=== PATIENT | female | born 1990 ===

== ENCOUNTER 2018-12-02 06:46 | Inpatient (IN) | payer SELFPAY ==
[2018-12-02] VITALS (27 sets, daily range): BP systolic 87–127; BP diastolic 51–81; PULSE 57–78; TEMP 97.5–98.2
[~2018-12-02] VITALS: Ht 182.9 cm; Wt 100.0 kg
[~2018-12-02 06:46] MED LIST: IBU600 MG PO; PRENATAL1 TA7 PO
--- NOTE | 2018-12-02 06:50 | NUR ---
0650- Pt arrives on unit via wheelchair from ED with complaints of UCs. Pt ambulates into bathroom independently to change into gown. 0654- Pt into bed, EFM and TOCO on and tracing. SVE /-2, intact. Assessment completed. Ice water given to PO hydrate. Plan of care explained. Pt denies questions at this time. Call light within reach.
[2018-12-02] MEDS ORDERED: VALTREX 50500 MG/TAB PO (07:04)
[2018-12-02 09:03] LABS: BASO % 0.4 % (0.0-2.0); EOS % 0.1 % (0-4.0); GRAN # 7.1 (1.4-6.5); GRAN % 71.1 % (42.2-75.2); HEMATOCRIT 39.9 % (37.0-47.0); HEMOGLOBIN 13.5 g/dl (12.5-16.0); LYMPH # 2.2 (1.2-3.4); LYMPH % 22.1 % (20.0-51.0); MEAN CELL VOLUME 95 fl (80.0-100.0); MEAN CORPUSCULAR HEMOGLOBIN 32 pg (27.0-31.0); MEAN CORPUSCULAR HGB CONC 34 g/dl (33.0-37.0); MEAN PLATELET VOLUME 11.2 fl (7.4-10.4); MONO # 0.6 (0.1-0.6); MONO % 5.9 % (1.7-9.3); PLATELET COUNT 213 K/mm3 (130-400); RED BLOOD COUNT 4.21 M/mm3 (4.10-5.30); REDCELL DISTRIBUTION WIDTH-CV 13.2 % (11.5-14.5)
--- NOTE | 2018-12-02 09:15 | NUR ---
0905- JOANNE Pederson at bedside for epidural placement. Pt repositioned to sitting on side of bed. 0908- O2 sat monitor on and tracing. 0916- Sat monitor off. 0918- Pt assisted to Semi-fowlers with WL. Pt tolerated well.
--- NOTE | 2018-12-02 11:00 | NUR ---
1100- Pt report given to JAYRO Sommers, she assumes care of Pt at this time.
--- NOTE | 2018-12-02 12:21 | NUR ---
1110 INTRODUCED TO PT AND IS COMPLAINING OF INCREASED PRESSUE. SVE SHOWS PT NOW COMPLETE. 1115 DR BARRY NOTIFIED VIA CELL PHONE OF PT PROGRESS, WILL COME FOR DELIVERY.
--- NOTE | 2018-12-02 12:23 | NUR ---
1125 QUIROS CATH PULL EASILY WITH TIP INTACT. ROOM READIED FOR DELIVERY. 1130 DR BARRY ON UNIT AND IN ROOM. 1132 PT SET UP FOR DELIVERY. 1134 PERINEAL PREP WITH WARM SOAPY WATER. 1135 PUSHING WITH CONTTRACTION 1136 DELIVERY OF HEAD WITH TIGHT CORD NOTED UP AND OVER SHOULDER. DELIVERS SPONT THRU CORD. TO MOMS ABD AND DRIED AND STIMULATED BY AND WILDER RN. SPONT RESPIRATIONS NOTED WITH LUSTY CRYING. NOTED TO HAVE SHORT CORD. CORD DOUBLE CLAMPED AND FOB CUTS CORD. 1138 SPONT DELVIERY OF INTACT PLACENTA AND PITOCIN RATE INCREASED TO 333mU/MIN. PLACED SKIN TO SKIN WITH MOM. 1140 REPAIR OF SMALL LACERTION STARTED. 1145 REPAIR COMPLETE. PERINEAL AREA WASHED AND ICE PAD PLACED. PT HAS VERY LITTLE CONTROL OVER LEFT LEG. BED TOGETHER AND WARM BLANKET PROVIDED FOR COMFORT. REMAINS IN MOM'S ARMS.
--- NOTE | 2018-12-02 13:29 | NUR ---
1250 BABY TO G-MOM AND PT RESTING. 1325 OROOTING AROUND AND BACK TO BREAST ON RIGHT SIDE.
--- NOTE | 2018-12-02 16:00 | NUR ---
1600- Pt ambulates to bathroom independently with RN standby. Voids without difficulty. Pericare explained and performed. Underware, peripad and tucks on. Clean gown on. Pt tolerates well. Ambulates independently to room. Oriented to room. Call light within reach. Pt denies needs at this time.
[2018-12-03] VITALS: BP 110/62; PULSE 62; TEMP 98
[2018-12-03 08:15] VITALS: BP 113/64; PULSE 57; TEMP 98.3
[2018-12-03] MEDS ORDERED: IBU800 M1 PO (08:52)
== END 2018-12-03 13:00 | disposition home or self-care (01) | DRG 806 ==
LOC: LDRO 06:46 → LDR 08:00 → OB 16:15
PROVIDERS: Obstetrics & Gynecology; ADMIT Obstetrics & Gynecology
PROC: 10E0XZZ Delivery of Products of Conception, External Approach (ICD-10-PCS; principal; 2018-12-02)
PROC: 0UQMXZZ Repair Vulva, External Approach (ICD-10-PCS; 2018-12-02)
DX: O69.2XX0 Labor and delivery complicated by other cord entanglement, with compression, not applicable or unspecified (principal); O98.32 Other infections with a predominantly sexual mode of transmission complicating childbirth; Z37.0 Single live birth; O48.0 Post-term pregnancy; Z3A.40 40 weeks gestation of pregnancy; A60.00 Herpesviral infection of urogenital system, unspecified; O71.82 Other specified trauma to perineum and vulva; O99.62 Diseases of the digestive system complicating childbirth; K21.9 Gastro-esophageal reflux disease without esophagitis
CPT/HCPCS: J2590; J7120

== ENCOUNTER → 2021-04-17 | Outpatient (CLI) | payer BC ==
[~2021-04-17] MED LIST changes: +IBU800 M1 PO; +MOTRIN 800800 MG/TAB PO; +VALTREX 50500 MG/TAB PO; +VALTREX1 GM PO
== END ==
LOC: ZCOL.LAB 06:56
DX: Z20.822 Contact with and (suspected) exposure to COVID-19 (principal)